=== PATIENT | female | born 1980 | race Caucasian/White ===

== ENCOUNTER 2025-08-04 05:55 | Day surgery (SDC) | payer OTHER ==
[~2025-08-04] VITALS: Ht 175.3 cm; Wt 95.0 kg
[~2025-08-04 05:55] MED LIST: APPLE CIDER VI1 EAC3 PO; MIDAZOLAM HCL 5 MG/5 ML VIAL IV PRN; VITAMIN D3125 MC1 PO; WOMEN MULTIVIT1 EAC1 PO; [UNRECOGNIZED DRUG - OTHER] PO; fentaNYL citrate 100 MCG/2 ML VIAL IV PRN
[2025-08-04 06:05] VITALS: BP 124/73
[2025-08-04] MEDS ORDERED: LACTATED RINGER'S 1,000 ML IV SCH (07:00)
[2025-08-04] MEDS ORDERED: IBLOOD GLUCOSE TEST STRIP 1 EA TEST VI PRN (07:00)
[2025-08-04] MEDS ORDERED: LIDOCAINE HCL 1% 5 ML SDV INJ ONE (07:00)
[2025-08-04] MEDS ORDERED: LIDOCAINE HCL 2% 5 ML SDV ONE (07:22)
--- NOTE | 2025-08-04 08:35 | NUR ---
08/04/25 0835 Nikki Tomlinson 0825- PT PRESENTS TO PACU, LEFT LATERAL POSITION, REACTIVE TO STIMULUS. BREATHING EVEN AND NON LABORED ON 4L O2 PER NC. PT MOVES UPPER EXTREMITIES AND SOME MUMBLING SPEECH. ABD SOFT, NON DISTENDED. ALL MONITORS IN PLACE. 0830- PT WAKES OFF AND ON, PASSING GAS, ENCOURAGED TO CONTINUE. NO NAUSEA OR PAIN.
[2025-08-04 09:07] VITALS: BP 108/74
== END 2025-08-04 09:05 | disposition home or self-care (01) ==
LOC: DS 05:55
PROVIDERS: ATTEND Surgery
PROC: 0DJD8ZZ Inspection of Lower Intestinal Tract, Via Natural or Artificial Opening Endoscopic (ICD-10-PCS; principal; 2025-08-04 07:30)
DX: Z12.11 Encounter for screening for malignant neoplasm of colon (principal); K64.8 Other hemorrhoids; Z88.8 Allergy status to other drugs, medicaments and biological substances
CPT/HCPCS: 00812; J2003; J2704